=== PATIENT | female | born 1980 | race Hispanic/Latino ===

== ENCOUNTER 2020-02-08 14:55 | Emergency (ER) | payer SELFPAY ==
--- NOTE | 2020-02-08 15:17 | Event Note ---
ED Screening Note ED Screening Note: This is a 39-year-old female that presents with vaginal discharge and pelvic pain This initial assessment/diagnostic orders/clinical plan/treatment(s) is/are subject to change based on patients health status, clinical progression and re- assessment by fellow clinical providers in the ED. Further treatment and workup at subsequent clinical providers discretion. Patient/guardian urged not to elope from the ED as their condition may be serious if not clinically assessed and managed. Initial orders include: UA
--- NOTE | 2020-02-08 16:29 | Emergency Department Report ---
HPI - General Chief Complaint: Urogenital-Female Time Seen by Provider: 02/08/20 15:16 - HPI HPI: Room 40 The patient is a 39-year-old female present with a chief complaint of vaginal discharge. The patient states approximate 1 week ago she was having sexual intercourse with her boyfriend when she believes she was torn. Patient states she felt pain during intercourse has had constant lower abdominal pain since. Patient denied any subsequent bleeding from the sexual encounter. Patient states yesterday she developed constant lower abdominal pain yellow vaginal discharge. The patient states she has had dysuria for approximately 1 week but denies hematuria. The patient states her LMP was 2 weeks ago and was within normal limits ED Past Medical Hx - Past Medical History Previous Medical History?: Yes Hx Asthma: Yes Additional medical history: ectodermal dysplasia - Surgical History Additional Surgical History: Cleft palate repair, mastoidectomy, bilateral tubal ligation, ear surgery - Family History Family history: no significant - Social History Smoking Status: Current Every Day Smoker Substance Use Type: None (Denies illicit drug use), Alcohol (Occasion) - Medications Home Medications: Home Medications Medication Instructions Recorded Confirmed Last Taken Type Doxycycline Hyclate [Doxycycline 100 mg PO Q12HR #14 tab 02/08/20 Unknown Rx Hyclate TAB] traMADoL [Ultram] 50 mg PO Q6HR PRN #10 tablet 02/08/20 Unknown Rx ED Review of Systems ROS: Stated complaint: FEMALE ISSUES Other details as noted in HPI Constitutional: fever (Subjective) Eyes: denies: eye pain ENT: denies: throat pain Respiratory: no symptoms reported Cardiovascular: denies: chest pain Endocrine: no symptoms reported Gastrointestinal: abdominal pain Genitourinary: dysuria, discharge. denies: hematuria, abnormal menses Musculoskeletal: denies: back pain Neurological: denies: headache Physical Exam - Physical Exam Physical Exam: GENERAL: The patient is well-developed well-nourished female lying on stretcher not appearing to be in acute distress. [] HEENT: Normocephalic. Atraumatic. Extraocular motions are intact. Patient has moist mucous membranes. NECK: Supple. Trachea midline CHEST/LUNGS: Clear to auscultation. There is no respiratory distress noted. HEART/CARDIOVASCULAR: Regular. There is no tachycardia. There is no gallop rub or murmur. ABDOMEN: Abdomen is soft, with lower abdominal discomfort to palpation. No rebound or guarding. Patient has normal bowel sounds. There is no abdominal distention. SKIN: There is no rash. There is no edema. There is no diaphoresis. NEURO: The patient is awake, alert, and oriented. The patient is cooperative. The patient has normal speech MUSCULOSKELETAL: There is no CVA tenderness. There is no evidence of acute injury. GENITOURINARY: APPROXIMATELY 3 MM ABRASION TO THE RIGHT OF THE CLITOR[place]. NO LACERATION SEEN ED Medical Decision Making - Lab Data Laboratory Tests 02/08/20 17:25 Urine Color Colorless Urine Turbidity Clear Urine pH 7.0 Ur Specific [place] 1.003 Urine Protein <15 mg/dl Urine Glucose (UA) Neg Urine Ketones Neg Urine Blood Sm Urine Nitrite Neg Urine Bilirubin Neg Urine Urobilinogen < 2.0 Ur Leukocyte Esterase Neg Urine WBC (Auto) < 1.0 Urine RBC (Auto) 1.0 U Epithel Cells (Auto) < 1.0 Urine HCG, Qual Negative Wet prep-no trichomonas, no yeast, less than 20% clue cells - Differential Diagnosis Urethritis, bacterial vaginosis, UTI, pyelonephritis Critical care attestation.: If time is entered above; I have spent that time in minutes in the direct care of this critically ill patient, excluding procedure time. 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 Please follow-up with him for further evaluation) Time of Disposition: 18:27
[2020-02-08 17:50] LABS: Bilirubin,Urine NEG (Negative); Blood,Urine SM (Negative); Color,Urine Colorless (Yellow); Protein,Urine <15 mg/dL mg/dL (Negative); Urobilinogen,Urine < 2.0 mg/dL (<2.0); WBC,Urine < 1.0 /HPF (0.0-6.0)
[2020-02-08 17:55] LABS: HCG Qualitative,Urine Negative (Negative)
[2020-02-08] MEDS ORDERED: LIDOCAINE-MPF (1%) 10 MG/1 ML VIAL 5 ML INFILTRATI ONE (18:22)
== END 2020-02-08 18:39 | disposition home or self-care (01) ==
LOC: ED 14:55
DX: S30.814A Abrasion of vagina and vulva, initial encounter (principal); R30.0 Dysuria; N89.8 Other specified noninflammatory disorders of vagina; J45.909 Unspecified asthma, uncomplicated; F17.200 Nicotine dependence, unspecified, uncomplicated; Z98.890 Other specified postprocedural states; Z79.899 Other long term (current) drug therapy; Z98.51 Tubal ligation status; X58.XXXA Exposure to other specified factors, initial encounter; Y93.89 Activity, other specified; Y92.89 Other specified places as the place of occurrence of the external cause; Y99.8 Other external cause status
CPT/HCPCS: 81001; 81025; 87210; 87591; 99283; J0696